=== PATIENT | female | born 1965 | race Caucasian/White ===

== ENCOUNTER 2017-07-29 04:34 | Emergency (ER) | payer SELFPAY ==
[~2017-07-29] VITALS: Ht 160 cm; Wt 56.7 kg
--- NOTE | 2017-07-29 04:44 | NUR ---
DR. COOK AT BEDSIDE FOR MSE.
--- NOTE | 2017-07-29 04:45 | NUR ---
PT BIB [facility]09 FROM HOME FOR C/O HEADACHE WHICH STARTED 3 HOURS PRIOR TO ARRIVAL. PT IS AWAKE, A/O X4.
[2017-07-29] MEDS ORDERED: PANT40TA4 PO (04:53)
[2017-07-29] MEDS ORDERED: GABA-534 PO (04:53)
[2017-07-29] MEDS ORDERED: ONDANSETRON ODT 4 MG TAB.RAPDIS SL ONE (05:00)
[2017-07-29] MEDS ORDERED: HYDROCODONE/APAP 5-325MG TABLET PO ONE (05:00)
[2017-07-29] MEDS ORDERED: HYDROCODONE/APAP 5-325MG TABLET ONE (05:03)
[2017-07-29] MEDS ORDERED: ONDANSETRON ODT 4 MG TAB.RAPDIS ONE (05:03)
--- NOTE | 2017-07-29 06:26 | NUR ---
Patient discharged to home in stable conditon. Written and verbal after care instructions given. Patient verbalizes understanding of instructions. PATIENT AND SON WAITING IN ROOM FOR RIDE TO PICK THEM UP.
[2017-07-29 06:27] VITALS: BP 155/90
== END 2017-07-29 06:28 | disposition home or self-care (01) ==
LOC: ER 04:46
DX: R51 Headache (principal); K08.89 Other specified disorders of teeth and supporting structures; F41.9 Anxiety disorder, unspecified; K21.9 Gastro-esophageal reflux disease without esophagitis; Z79.899 Other long term (current) drug therapy
CPT/HCPCS: 70450; A4663; Q0162

== ENCOUNTER 2018-05-20 17:24 | Emergency (ER) | payer OTHER ==
[~2018-05-20] VITALS: Ht 160 cm; Wt 52.2 kg
[~2018-05-20 17:24] MED LIST: GABA-534 PO; PANT40TA4 PO
[2018-05-20] MEDS ORDERED: LEVO500T2 PO (17:40)
--- NOTE | 2018-05-20 17:40 | NUR ---
Patient refused blood draw, is aware.
[2018-05-20] MEDS ORDERED: ALPR0.255 PO (17:48)
[2018-05-20] MEDS ORDERED: IBUPROFEN 400 MG TABLET PO ONE (18:15)
[2018-05-20] MEDS ORDERED: IBUPROFEN 400 MG TABLET ONE (18:18)
--- NOTE | 2018-05-20 18:20 | NUR ---
Patient discharged to home in stable conditon & brisk steady gait. Written and verbal after care instructions given to patient and brother. Patient and family verbalized understanding of instructions. CD copy of x-ray with official radiologist's findings & EKG copy were given to patient per patient's request.
== END 2018-05-20 18:26 | disposition home or self-care (01) ==
LOC: ER 17:26
DX: R07.89 Other chest pain (principal); R91.8 Other nonspecific abnormal finding of lung field; K21.9 Gastro-esophageal reflux disease without esophagitis; Z79.2 Long term (current) use of antibiotics; Z79.899 Other long term (current) drug therapy
CPT/HCPCS: 71045; 93005; A4663

== ENCOUNTER 2018-06-03 17:19 | Emergency (ER) | payer OTHER, MEDICAID ==
[~2018-06-03] VITALS: Ht 160 cm; Wt 53.1 kg
[~2018-06-03 17:19] MED LIST changes: +ALPR0.255 PO; -GABA-534 PO; +LEVO500T2 PO; -PANT40TA4 PO
--- NOTE | 2018-06-03 17:55 | NUR ---
PT IS IN ROOM #1A. DR BARRAZA EVALUATED THE PT.
[2018-06-03] MEDS ORDERED: PANTOPRAZOLE SODIUM 40 MG TABLET.DR PO ONE ×2 (18:00→18:01)
[2018-06-03] MEDS ORDERED: LIDOCAINE VISCUS 2% 15 ML UDC MM ONE (18:00)
[2018-06-03] MEDS ORDERED: MAG HYDROX/AL HYDROX/SIMETH 30 ML LIQUID UDC PO ONE (18:00)
[2018-06-03] MEDS ORDERED: LIDOCAINE VISCUS 2% 15 ML UDC ONE (18:01)
[2018-06-03] MEDS ORDERED: MAG HYDROX/AL HYDROX/SIMETH 30 ML LIQUID UDC ONE (18:01)
[2018-06-03] MEDS ORDERED: MUPIROCIN 2% OINT 22 GM TUBE TP ONE (18:30)
[2018-06-03 18:34] LABS: *BILIRUBIN,URIN NEGATIVE (NEGATIVE); *BLOOD, URINE 2+ (NEGATIVE); *COLOR,URINE YELLOW (YELLOW); *KETONES,URINE NEGATIVE (NEGATIVE); *UROBILINOGEN,URINE 0.2 E.U./dl (NORMAL); LEUKOCYTE ESTERASE ,URINE NEGATIVE (NEGATIVE); NITRITE, URINE NEGATIVE (NEGATIVE); UGLUCOSE NEGATIVE (NEGATIVE)
[2018-06-03 18:38] LABS: *CLARITY,URINE SLIGHTLY HAZY (CLEAR)
[2018-06-03 18:39] LABS: BACTERIA,URINE FEW /HPF (NONE SEEN); RBC,URINE 20-50 /HPF (0-3); SQUAMOUS EPITHELIAL CELL,UR MODERATE /HPF (NONE SEEN)
[2018-06-03 18:40] LABS: MUCUS,URINE FEW /LPF (0-FEW)
[2018-06-03] MEDS ORDERED: MUPIROCIN 2% OINT 22 GM TUBE ONE (18:45)
--- NOTE | 2018-06-03 18:57 | NUR ---
PT WAS D/C'd TO HOME. D/C INSTRUCTIONS GIVEN TO THE PT.
[2018-06-03 18:59] VITALS: BP 132/69
== END 2018-06-03 19:00 | disposition home or self-care (01) ==
LOC: ER 17:21
DX: K21.9 Gastro-esophageal reflux disease without esophagitis (principal); L03.115 Cellulitis of right lower limb; J02.9 Acute pharyngitis, unspecified; Z79.2 Long term (current) use of antibiotics; Z79.899 Other long term (current) drug therapy
CPT/HCPCS: 73660; 87086; A4663

== ENCOUNTER 2018-06-27 20:18 | Emergency (ER) | payer MEDICAID ==
--- NOTE | 2018-06-27 20:45 | NUR ---
Patient left without being triaged or Seen by ERMD
== END 2018-06-27 21:33 | disposition left against medical advice (07) ==
LOC: ER 20:18
DX: Z53.21 Procedure and treatment not carried out due to patient leaving prior to being seen by health care provider (principal)

== ENCOUNTER 2018-10-04 02:36 | Inpatient (IN) | payer MEDICAID ==
[~2018-10-04] VITALS: Ht 157.5 cm; Wt 54.9 kg
[2018-10-04] VITALS (7 sets, daily range): BP systolic 112–148; BP diastolic 54–73
--- NOTE | 2018-10-04 02:53 | NUR ---
Dr. Hirsch at bedside for MSE.
--- NOTE | 2018-10-04 03:04 | NUR ---
Pt out of ER for CT.
[2018-10-04 03:10] LABS: BASOPHILS % (AUTO) 0.4 % (0.0-2.0); HEMATOCRIT 27.7 % (31.2-41.9); HEMOGLOBIN 9.6 g/dL (10.9-14.3); LYMPHOCYTES # (AUTO) 0.2 K/uL (20.0-40.0); LYMPHOCYTES % (AUTO) 4.4 % (20.5-51.5); MEAN CORPUSCULAR HEMOGLOBIN 32.3 uug (24.7-32.8); MEAN CORPUSCULAR HGB CONC 35 g/dL (32.3-35.6); MEAN CORPUSCULAR VOLUME 93.2 fL (75.5-95.3); MONOCYTES # (AUTO) 0.6 K/uL (2.0-10.0); MONOCYTES % (AUTO) 11.8 % (0.0-11.0); NEUTROPHILS # (AUTO) 3.9 K/uL (1.8-8.9); NEUTROPHILS % (AUTO) 83.4 % (38.5-71.5); RED BLOOD CELL COUNT(AUTO) 2.97 MIL/uL (3.63-4.92); WHITE BLOOD COUNT (AUTO) 4.7 K/uL (3.8-11.8)
--- NOTE | 2018-10-04 03:15 | NUR ---
Pt back to ER from CT.
[2018-10-04 03:34] LABS: PLATELET COUNT (AUTO) 20 K/uL (179-408)
[2018-10-04 04:02] LABS: LYMPHOCYTES % (MANUAL) 2 % (20-40); MONOCYTES % (MANUAL) 10 % (2-10); NEUTROPHILS % (MANUAL) 88 % (42-75)
--- NOTE | 2018-10-04 04:04 | NUR ---
PAGED EPPIC PANEL. WAITING DR OLIVAREZ
--- NOTE | 2018-10-04 04:07 | NUR ---
Dr. Hirsch on panel call with Dr. Higginbotham. Patient accepted for admission to [facility], diagnosis: thrombocytopenia.
[2018-10-04] MEDS ORDERED: MORPHINE SULFATE 2 MG/1 ML DISP.SYRIN IV PRN (04:15)
[2018-10-04] MEDS ORDERED: ACETAMINOPHEN 325 MG TABLET PO PRN (04:15)
[2018-10-04] MEDS ORDERED: ONDANSETRON 4 MG/2 ML VIAL IV PRN (04:15)
[2018-10-04] MEDS ORDERED: Z GUARD REMEDY PASTE 57 GM TUBE TOP PRN (04:15)
[2018-10-04] MEDS ORDERED: MAGNESIUM HYDROXIDE 30 ML LIQUID UDC PO PRN (04:15)
[2018-10-04] MEDS ORDERED: HYDROCODONE/APAP 5-325MG TABLET PO PRN (04:15)
--- NOTE | 2018-10-04 04:40 | NUR ---
Report given to Myranda JOSUE Tele.
[2018-10-04] MEDS ORDERED: NYSTATIN PO (04:42)
[2018-10-04] MEDS ORDERED: TRAM50TA2 PO (04:42)
[2018-10-04] MEDS ORDERED: GABAPENTIN PO (04:42)
[2018-10-04] MEDS ORDERED: ONDA8TAB6 PO (04:42)
--- NOTE | 2018-10-04 04:50 | NUR ---
PATIENT UNABLE TO RECALL ALL HOME MEDICATIONS NAME AND DOSAGE AT THIS TIME. PATIENT'S SON WILL BRING HOME MEDICATION BOTTLE OR LIST LATER TODAY. 3RD FLOOR ADMITTING NURSE AWARE
--- NOTE | 2018-10-04 05:10 | NUR ---
Received pt. alert oriented x4. Pt. states she is in mild pain from bump on head, she states she feels tired and hungry. Pt. has portacath on L upper arm 19 gauge. Pt. is ambulatory with walker. Pt. is on tele monitor. 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 Pt.'s left leg has edema. Pt. states she has less sensation on left leg. Upon lower extremity examination pt. "feels pressure" when touching left lower leg. Bed in lowest position, 2 side rails up, bed locked, in lowest position, with bed alarm on, and call light within reach. Provided pt. with snacks, extra blanket, and will continue to monitor on shift.
[2018-10-04] MEDS ORDERED: GABA-534 PO (07:56)
[2018-10-04] MEDS ORDERED: LIDO5CRE18 TP (08:07)
[2018-10-04] MEDS ORDERED: SODI650T PO (08:10)
[2018-10-04] MEDS ORDERED: GABAPENTIN 300 MG CAPSULE PO SCH (09:00)
[2018-10-04] MEDS ORDERED: SODIUM BICARBONATE 650 MG TABLET PO SCH (09:00)
[2018-10-04] MEDS ORDERED: LIDOCAINE VISCUS 2% 15 ML UDC MM SCH ×2 (14:00)
[2018-10-04] MEDS ORDERED: ONDANSETRON HCL 4 MG TABLET PO PRN (15:45)
[2018-10-04] MEDS ORDERED: ALPRAZOLAM 0.25 MG TABLET PO PRN (15:45)
[2018-10-04] MEDS ORDERED: TRAMADOL HCL 50 MG TABLET PO PRN (15:45)
[2018-10-04] MEDS ORDERED: Medication Not On Formulary EA (Ondansetron Hcl (Zofran) 8 MG) PO PRN (15:45)
[2018-10-04] MEDS: SODIUM BICARBONATE 650 MG TABLET PO SCH ×2 (17:28→21:32)
[2018-10-04] MEDS: GABAPENTIN 300 MG CAPSULE PO SCH (17:28)
[2018-10-04] MEDS: NYSTATIN SUSPENSION 5 ML LIQUID UDC PO SCH ×2 (17:29→21:32)
--- NOTE | 2018-10-04 20:00 | NUR ---
Received patient awake in bed. AAOx4. NO acute distress. No SOB. Lissette cath on JON intact and patent. Lower left extremity swelling noted. Safety and comfort measures implemented. Patient verbalized she is waiting for Dr. Parsons to come and do rounds for consult. All needs met. Call light within reach.
--- NOTE | 2018-10-04 21:00 | NUR ---
Dr. Parsons at bedside for consult and to discuss plan of care. Platelet transfusion and duplex venous US for lower left leg extremity swelling ordered.
[2018-10-04] MEDS ORDERED: ACETAMINOPHEN 325 MG TABLET PO ONE (21:15)
[2018-10-04] MEDS ORDERED: diphenhydrAMINE 50 MG/1 ML VIAL IV ONE (21:15)
[2018-10-05] MEDS ORDERED: diphenhydrAMINE 50 MG/1 ML VIAL IV ONE (01:30)
--- NOTE | 2018-10-05 01:45 | NUR ---
Started transfusion. Will remain at bedside and continue to monitor.
[2018-10-05 02:02] VITALS: BP 127/74
[2018-10-05 02:17] VITALS: BP 114/68
[2018-10-05 03:18] VITALS: BP 105/60
[2018-10-05 03:27] VITALS: BP 108/63
--- NOTE | 2018-10-05 03:27 | NUR ---
Transfusion complete. VSS. No acute distress. No SOB. Patient currently resting in bed comfortably. Safety and comfort maintained. Will continue to monitor for remainder of shift.
--- NOTE | 2018-10-05 05:55 | NUR ---
Patient rested well in between care. No acute distress at this time. No SOB. Patient currently asleep in bed. Will endorse care to incoming nurse accordingly. All needs met. Call light within reach.
--- NOTE | 2018-10-05 07:57 | NUR ---
Sleeping, appears comfortable. Not in distress
[2018-10-05] MEDS: GABAPENTIN 300 MG CAPSULE PO SCH (08:45)
[2018-10-05] MEDS: NYSTATIN SUSPENSION 5 ML LIQUID UDC PO SCH (08:45)
[2018-10-05] MEDS: SODIUM BICARBONATE 650 MG TABLET PO SCH (08:45)
[2018-10-05 10:19] LABS: BASOPHILS % (AUTO) 0.1 % (0.0-2.0); EOSINOPHILS % (AUTO) 0.3 % (0.0-7.0); HEMATOCRIT 27.1 % (31.2-41.9); HEMOGLOBIN 9.2 g/dL (10.9-14.3); LYMPHOCYTES # (AUTO) 0.2 K/uL (20.0-40.0); LYMPHOCYTES % (AUTO) 11.6 % (20.5-51.5); MEAN CORPUSCULAR HEMOGLOBIN 32.2 uug (24.7-32.8); MEAN CORPUSCULAR HGB CONC 34 g/dL (32.3-35.6); MEAN CORPUSCULAR VOLUME 94.9 fL (75.5-95.3); MONOCYTES # (AUTO) 0.4 K/uL (2.0-10.0); MONOCYTES % (AUTO) 17.5 % (0.0-11.0); NEUTROPHILS # (AUTO) 1.5 K/uL (1.8-8.9); NEUTROPHILS % (AUTO) 70.5 % (38.5-71.5); PLATELET COUNT (AUTO) 60 K/uL (179-408); RED BLOOD CELL COUNT(AUTO) 2.85 MIL/uL (3.63-4.92); WHITE BLOOD COUNT (AUTO) 2.1 K/uL (3.8-11.8)
[2018-10-05 10:32] LABS: CREATININE 0.7 mg/dL (0.6-1.3); PHOSPHOROUS 3.3 mg/dL (2.5-4.9); POTASSIUM 3.6 mmol/L (3.5-5.1)
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
[2018-10-05 10:52] LABS: LYMPHOCYTES % (MANUAL) 11 % (20-40); MONOCYTES % (MANUAL) 17 % (2-10); NEUTROPHILS % (MANUAL) 72 % (42-75)
[2018-10-05 12:00] VITALS: BP 125/74
[2018-10-05 12:36] LABS: THYROID STIMULATING HORMONE 2.533 mIU/mL (0.358-3.740)
--- NOTE | 2018-10-05 12:40 | NUR ---
With discharge order to home. Patient will follow up with Oncologist with prior appointment already set up for today. Lissette cath access removed, dressing applied. DC instruction given to patient, verbalized understanding. Discharged per wheelchair in fair condition, not in distress, afebrile, skin intact.
== END 2018-10-05 13:00 | disposition home or self-care (01) | DRG 660 ==
LOC: ER 02:41 → TELE3 04:30 → MEDSURG3 17:30
PROVIDERS: ADMIT Student in an Organized Health Care Education/Training Program; ATTEND Registered Nurse
PROC: 30233R1 Transfusion of Nonautologous Platelets into Peripheral Vein, Percutaneous Approach (ICD-10-PCS; principal; 2018-10-04)
DX: D61.810 Antineoplastic chemotherapy induced pancytopenia (principal); C78.01 Secondary malignant neoplasm of right lung; C76.52 Malignant neoplasm of left lower limb; C78.02 Secondary malignant neoplasm of left lung; I67.2 Cerebral atherosclerosis; G44.309 Post-traumatic headache, unspecified, not intractable; Y04.0XXA Assault by unarmed brawl or fight, initial encounter; Y92.019 Unspecified place in single-family (private) house as the place of occurrence of the external cause; K21.9 Gastro-esophageal reflux disease without esophagitis; F41.9 Anxiety disorder, unspecified; F32.9 Major depressive disorder, single episode, unspecified; R60.0 Localized edema; R26.2 Difficulty in walking, not elsewhere classified
CPT/HCPCS: 36415; 70450; 83735; 84100; 84443; 85025; 85049; 85730; 86850; 86900; 86901; 97110; A4663; A9150; G0378; J1200; J7040; P9021; P9035-BL